=== PATIENT | female | born 1975 | race Caucasian/White ===

== ENCOUNTER 2022-01-09 02:11 | Observation (INO) | payer OTHER ==
[2022-01-09] MEDS ORDERED: NALOXONE 0.4 MG/ML 1 ML VIAL IV PRN (03:36)
[2022-01-09] MEDS ORDERED: HYDROmorphone 0.5 MG/0.5 ML SYRINGE IVP PRN (03:36)
[2022-01-09] MEDS: HYDROmorphone 1 MG/ML 1 ML SYRINGE IVP PRN ×2 (04:05→12:25)
[2022-01-09] MEDS: ONDANSETRON 4 MG/2 ML VIAL IVP PRN ×2 (04:06→14:23)
[2022-01-09] MEDS: SODIUM CHLORIDE 0.9% 1,000 ML IV SCH ×2 (04:15→14:23)
--- NOTE | 2022-01-09 08:57 | P.GSHP ---
History of Present Illness H&P Date: 01/09/22 Chief Complaint: Right flank pain The patient is a 46-year-old white female with a history of urolithiasis. She underwent ESWL approximately 3 years ago in [place], [place]. She now presents with a one-month history of intermittent right flank pain. Her pain became severe yesterday, associated with nausea and vomiting. She presented to the ER at [facility]. 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 Because of the hydronephrosis was indeterminate. Ultrasound the prior day showed moderate to severe right hydronephrosis. - Constitutional Constitutional: Denies chills, Denies fever - Gastrointestinal Gastrointestinal: Reports nausea, Reports vomiting - Genitourinary (Female) Genitourinary: Reports flank pain, Reports hematuria, Reports kidney stones, Denies dysuria Past Medical History Past Medical History: No Reported History History of Any Multi-Drug Resistant Organisms: None Reported Past Surgical History: Cholecystectomy Past Psychological History: No Psychological Hx Reported Smoking Status: Current every day smoker Past Alcohol Use History: None Reported Past Drug Use History: None Reported Medications and Allergies Home Medications Medication Instructions Recorded Confirmed Type Ascorbic Acid/Collagen Hydr 1 cap PO DAILY 01/09/22 01/09/22 History [Collagen Plus Vit C Capsule] Cholecalciferol (Vitamin D3) 250 mcg PO DAILY 01/09/22 01/09/22 History [Vitamin D3 (125 MCG = 5,000 IU)] Fish Oil/Dha/Epa [Fish Oil 1,200 1 cap PO DAILY 01/09/22 01/09/22 History mg Fish Oil] Vitamin B Complex 1 cap PO DAILY 01/09/22 01/09/22 History Allergies Allergy/AdvReac Type Severity Reaction Status Date / Time No Known Allergies Allergy Verified 01/09/22 08:30 Surgical - Exam Vital Signs Temp Pulse Resp BP Pulse Ox 98.9 F 76 16 112/74 96 01/09/22 02:39 01/09/22 02:39 01/09/22 02:39 01/09/22 02:39 01/09/22 02:39 - General well developed, well nourished, no distress - Neck no masses, trachea midline - Respiratory normal respiratory effort - Abdomen Soft, non-distended, no palpable mass. There is evidence of right lower quadrant tenderness and right CVA tenderness, no guarding or rebound. - Psychiatric oriented to time, oriented to person, oriented to place, speech is normal, memory intact Results - Imaging CT scan - abdomen: report reviewed Assessment and Plan (1) Unspecified hydronephrosis Current Visit: Yes Status: Acute Code(s): N13.30 - UNSPECIFIED HYDRONEPHROSIS SNOMED Code(s): 76979247 Plan: I had a lengthy discussion with the patient regarding her hydronephrosis. The l fuad cause of the hydronephrosis is a distal ureteral calculus. She is currently receiving parenteral analgesics and IV hydration. Her serum creatinine level is 1.4. She will undergo cystoscopy, right retrograde pyelogram, right ureteral stent insertion. Ureteroscopy will be performed if necessary to place the stent. Assuming she has an obstructing distal ureteral calculus, she would then be scheduled to undergo a secondary procedure in 2-4 weeks which would consist of ureteroscopic removal of the calculus. The ureteral stent would be removed at that time. Potential risks associated with stent placement have been reviewed with the patient, including anesthesia, ureteral injury, and inability to successfully place the stent, in which case a nephrostomy tube may be required. Time with Patient: Greater than 30
[2022-01-09] MEDS: PANTOPRAZOLE 40 MG/10 ML VIAL IV SCH (09:57)
[2022-01-09] MEDS ORDERED: LACTATED RINGERS 1,000 ML IV ONE (15:57)
[2022-01-09] MEDS ORDERED: DEXAMETHASONE SOD PHOSPHATE 4 MG/ML 1 ML VIAL IVP ONE (15:58)
[2022-01-09] MEDS ORDERED: fentaNYL (PF) 50 MCG/ML 2 ML AMP ONE (16:03)
[2022-01-09] MEDS ORDERED: MIDAZOLAM 2 MG/2 ML VIAL ONE (16:03)
[2022-01-09] MEDS ORDERED: LIDOCAINE 2% INJ 20 MG/ML (2 ML VIAL) ONE (16:03)
[2022-01-09] MEDS ORDERED: PROPOFOL 10 MG/ML 20 ML VIAL IV ONE (16:03)
[2022-01-09] MEDS ORDERED: IOPAMIDOL-370 50ML BTL MISCELLANE ONE ×3 (16:05→16:26)
--- NOTE | 2022-01-09 17:53 | P.OP ---
Date of Procedure: 01/09/22 Preoperative Diagnosis: Right hydronephrosis secondary to right distal ureteral calculus Postoperative Diagnosis: Same Procedure(s) Performed: Cystoscopy, right retrograde pyelogram, right ureteroscopy, right ureteral stent insertion Anesthesia: JACI Surgeon: Won Gomez Estimated Blood Loss (ml): 0 IV fluids (ml): 400 Pathology: none sent Condition: stable Disposition: PACU Indications for Procedure: The patient is a 46-year-old white female with a history of urolithiasis. She underwent ESWL approximately 3 years ago in [place], [place]. She now presents with a one-month history of intermittent right flank pain. Her pain became severe yesterday, associated with nausea and vomiting. She presented to the ER at [facility]. 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 Because of the hydronephrosis was indeterminate. Ultrasound the prior day showed moderate to severe right hydronephrosis. Operative Findings: Marked right hydroureteronephrosis due to a 3-4 mm impacted right distal ureteral calculus. Description of Procedure: The patient was taken to the operating room and placed in the dorsolithotomy position, with legs supported in Ti stirrups. The external genitalia was prepped and draped sterilely. The 30 lens was used to introduce the 22-Iranian Stortz cystoscopic sheath through the urethra and into the bladder under direct vision. The bladder was examined in its entirety. Both ureteral orifices were of normal anatomic location and configuration, and clear urine effluxed from the left. No tumors or foreign bodies were seen. Using a 10-Iranian cone-tipped catheter, a right retrograde pyelogram was performed. This revealed a 3-4 mm right distal ureteral calculus with proximal hydroureter. An angle-tip 0.035 inch Glidewire was passed through the cystoscope. The right ureteral orifice was cannulated, and the Glidewire was slowly advanced up to the calculus. However, despite significant manipulation the Glidewire would not pass the on the calculus. Therefore, the cystoscope was removed and the ACMI semirigid ureteroscope was advanced into the bladder. The right ureteral orifice was cannulated, and the Glidewire was advanced through the ureteroscope. It was possible to advance the Glidewire beyond the calculus and up to the right renal pelvis, where it coiled. The renal pelvis appeared to be markedly dilated given the course of the Glidewire. The ureteroscope was removed, and the Glidewire was backloaded into the cystoscope, which was passed into the bladder. A 24 cm, 6-Iranian double-J ureteral stent was placed over the wire. Proper stent positioning was verified fluoroscopically and endoscopically. There was evidence of a "hydronephrotic villanueva", as urine passed through the ureteral stent. The bladder was emptied and the cystoscope removed. The patient tolerated the procedure well was taken to the recovery room in stable condition.
[2022-01-10] MEDS: SODIUM CHLORIDE 0.9% 1,000 ML IV SCH ×2 (01:06→09:27)
[2022-01-10 03:05] VITALS: RESP 16
[2022-01-10 07:30] VITALS: BP 105/65; PULSE 71; TEMP 98.6
--- NOTE | 2022-01-10 07:51 | FL ---
Intraoperative/procedural fluoroscopic services were provided. Total fluoroscopy time is 32.3 seconds with a total of 3 submitted images to PACS. Please see the operative/procedural note for further det ails.
[2022-01-10] MEDS: PANTOPRAZOLE 40 MG/10 ML VIAL IV SCH (09:27)
--- NOTE | 2022-01-10 10:25 | P.DS ---
Providers Date of admission: 01/09/22 03:36 Expected date of discharge: 01/10/22 Attending physician: Won Gomez Primary care physician: Hermes Vieyra - Discharge Diagnosis(es) (1) Unspecified hydronephrosis Current Visit: Yes Status: Acute Hospital Course: The patient presented with right flank pain. CT scan at [facility] showed severe right hydroureteronephrosis of indeterminate etiology, with a right perinephric urinoma. She has a history of urolithiasis. She was treated with parenteral analgesics. She underwent right ureteral stent insertion and felt much better following the procedure. At the time of discharge, she reported minimal right flank discomfort and mild urinary frequency. She did not feel that either warranted treatment. Procedures: Cystoscopy, right retrograde pyelogram, right ureteroscopy, right ureteral stent insertion on 01/09/2022. Patient Condition at Discharge: Good Plan - Discharge Summary Discharge Rx Participant: No New Discharge Prescriptions: No Action Vitamin B Complex 1 cap PO DAILY Fish Oil/Dha/Epa [Fish Oil 1,200 mg Fish Oil] 1 cap PO DAILY Cholecalciferol (Vitamin D3) [Vitamin D3 (125 MCG = 5,000 IU)] 250 mcg PO DAILY Ascorbic Acid/Collagen Hydr [Collagen Plus Vit C Capsule] 1 cap PO DAILY Discharge Medication List Ascorbic Acid/Collagen Hydr [Collagen Plus Vit C Capsule] 1 cap PO DAILY 01/09/22 [History] Cholecalciferol (Vitamin D3) [Vitamin D3 (125 MCG = 5,000 IU)] 250 mcg PO DAILY 01/09/22 [History] Fish Oil/Dha/Epa [Fish Oil 1,200 mg Fish Oil] 1 cap PO DAILY 01/09/22 [History] Vitamin B Complex 1 cap PO DAILY 01/09/22 [History] Follow up Appointment(s)/Referral(s): Hermes Vieyra MD [Primary Care Provider] - 1 Week Activity/Diet/Wound Care/Special Instructions: Diet as tolerated. Activity as tolerated. Patient will be contacted by Dr. Gomez' office to arrange surgery in 2-3 weeks (cystoscopy, right ureteral stent removal, right ureteroscopy with laser lithotripsy and stone basketing). Discharge Disposition: HOME SELF-CARE
--- NOTE | 2022-02-11 07:25 | ED ---
Abdominal Pain HPI - General Chief Complaint: Abdominal Pain Stated Complaint: Flank Pain, Transfer Time Seen by Provider: 01/09/22 02:45 Source: patient Mode of arrival: ambulatory Limitations: no limitations - History of Present Illness Initial Comments: Please note that this is a replacement Of the dictation, the original appears to have been lost from the system. This patient is 46-year-old woman who arrives here as transfer from [facility]. The patient had gone there with complaint of right flank pain. She had been having intermittent pains going back a number of weeks. She did have a lithotripsy performed by urology approximately a month ago, but she continued to have some intermittent pains that became much more severe over the course of today. She had gone to the other department where she was found to have hydroureter and hydronephrosis with suspected urinoma. Patient was transferred here for further management. She states she has had a little bit of relief with analgesics. Patient not noting fevers. MD Complaint: abdominal pain -: week(s) Location: R flank Migration to: no migration Severity: severe Quality: aching Consistency: colicky Improves With: medication Worsens With: nothing Context: recent surgery/procedure - Related Data Home Medications Medication Instructions Recorded Confirmed Ascorbic Acid/Collagen Hydr 1 cap PO DAILY 01/09/22 01/21/22 [Collagen Plus Vit C Capsule] Cholecalciferol (Vitamin D3) 250 mcg PO DAILY 01/09/22 01/21/22 [Vitamin D3 (125 MCG = 5,000 IU)] Fish Oil/Dha/Epa [Fish Oil 1,200 1 cap PO DAILY 01/09/22 01/21/22 mg Fish Oil] Vitamin B Complex 1 cap PO DAILY 01/09/22 01/21/22 Allergies Allergy/AdvReac Type Severity Reaction Status Date / Time No Known Allergies Allergy Verified 01/22/22 11:13 Review of Systems ROS Statement: Those systems with pertinent positive or pertinent negative responses have been documented in the HPI. ROS Other: All systems not noted in ROS Statement are negative. Constitutional: Denies: fever, weakness Respiratory: Denies: cough, dyspnea Cardiovascular: Denies: chest pain, palpitations, edema Gastrointestinal: Reports: as per HPI, abdominal pain, nausea. Denies: vomiting, diarrhea, constipation Genitourinary: Denies: dysuria, frequency, hematuria Musculoskeletal: Denies: back pain Skin: Denies: rash Neurological: Denies: headache, weakness Past Medical History Past Medical History: No Reported History History of Any Multi-Drug Resistant Organisms: None Reported Past Surgical History: Cholecystectomy Past Psychological History: No Psychological Hx Reported Smoking Status: Current every day smoker Past Alcohol Use History: None Reported Past Drug Use History: None Reported General Exam Limitations: no limitations General appearance: alert, in no apparent distress Head exam: Present: atraumatic, normocephalic Eye exam: Present: normal appearance. Absent: scleral icterus, conjunctival injection ENT exam: Present: normal oropharynx Neck exam: Present: normal inspection Respiratory exam: Present: normal lung sounds bilaterally. Absent: respiratory distress, wheezes, rales, rhonchi, stridor Cardiovascular Exam: Present: regular rate, normal rhythm, normal heart sounds. Absent: systolic murmur, diastolic murmur, rubs, gallop GI/Abdominal exam: Present: soft. Absent: distended, tenderness, guarding, rebound, rigid, mass Extremities exam: Present: normal inspection, normal capillary refill. Absent: pedal edema, calf tenderness Back exam: Present: normal inspection, CVA tenderness (R). Absent: CVA tenderness (L), vertebral tenderness Neurological exam: Present: alert Skin exam: Present: warm, dry, intact, normal color. 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 Patient has had some relief with analgesics and will be admitted to urology service. Disposition Clinical Impression: Calculus of ureter, Intractable abdominal pain Disposition: ADMITTED IP TO THIS HOSP Condition: Fair Is patient prescribed a controlled substance at d/c from ED?: No
== END 2022-01-10 11:12 | disposition home or self-care (01) ==
LOC: EC 02:11 → INTOOBSV 03:36 → 4SSUR 03:36 → UNDODISIN 01-10 11:12
PROVIDERS: ADMIT Urology; ATTEND Urology
PROC: 0T768DZ Dilation of Right Ureter with Intraluminal Device, Via Natural or Artificial Opening Endoscopic (ICD-10-PCS; principal; 2022-01-09 18:30)
PROC: BT1D1ZZ Fluoroscopy of Right Kidney, Ureter and Bladder using Low Osmolar Contrast (ICD-10-PCS; 2022-01-09 18:30)
DX: N13.2 Hydronephrosis with renal and ureteral calculous obstruction (principal); F17.210 Nicotine dependence, cigarettes, uncomplicated; Z87.442 Personal history of urinary calculi; Z90.49 Acquired absence of other specified parts of digestive tract
CPT/HCPCS: 96376; 96375 ×2; 96374; 99284; 81025 ×2; 52332; G0378 ×2; C2625; C1758; C1769; J2250; J1100; J2405; J3010; J1170 ×2; J2704; C9113 ×2; Q9967; J2001

== ENCOUNTER 2022-01-22 10:32 | Day surgery (SDC) | payer OTHER ==
--- NOTE | 2022-01-17 09:05 | P.GSHP ---
History of Present Illness H&P Date: 01/17/22 Chief Complaint: Right flank pain The patient is a 46-year-old white female with a history of urolithiasis. She underwent ESWL approximately 3 years ago in [place], [place]. She recently presented with a one-month history of intermittent right flank pain. Her pain became severe, associated with nausea and vomiting. She presented to the ER at [facility]. 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 She was transferred to [facility] and underwent right ureteral stent placement. It was determined at that time that she had an impacted 4 mm right distal ureteral calculus. Her pain improved following stent placement. - Constitutional Constitutional: Denies chills, Denies fever - Gastrointestinal Gastrointestinal: Reports nausea, Reports vomiting - Genitourinary (Female) Genitourinary: Reports flank pain, Reports hematuria, Reports kidney stones, Denies dysuria Past Medical History Past Medical History: No Reported History History of Any Multi-Drug Resistant Organisms: None Reported Past Surgical History: Cholecystectomy Past Psychological History: No Psychological Hx Reported Smoking Status: Current every day smoker Past Alcohol Use History: None Reported Past Drug Use History: None Reported Medications and Allergies Home Medications Medication Instructions Recorded Confirmed Type Ascorbic Acid/Collagen Hydr 1 cap PO DAILY 01/09/22 01/09/22 History [Collagen Plus Vit C Capsule] Cholecalciferol (Vitamin D3) 250 mcg PO DAILY 01/09/22 01/09/22 History [Vitamin D3 (125 MCG = 5,000 IU)] Fish Oil/Dha/Epa [Fish Oil 1,200 1 cap PO DAILY 01/09/22 01/09/22 History mg Fish Oil] Vitamin B Complex 1 cap PO DAILY 01/09/22 01/09/22 History Allergies Allergy/AdvReac Type Severity Reaction Status Date / Time No Known Allergies Allergy Verified 01/09/22 08:30 Surgical - Exam - General well developed, well nourished, no distress - Neck no masses, trachea midline - Respiratory normal respiratory effort - Abdomen Abdomen: soft, tender (Right lower quadrant and right CVA tenderness), no guarding, no rigid, no rebound - Genitourinary normal external genitalia - Psychiatric oriented to time, oriented to person, oriented to place, speech is normal, memory intact Assessment and Plan (1) Calculus of ureter Status: Acute Code(s): N20.1 - CALCULUS OF URETER SNOMED Code(s): 64275844 Plan: Cystoscopy, right ureteral stent removal, right ureteroscopy with Holmium laser lithotripsy and possible stone basketing. The procedure has been reviewed in detail with the patient. She is aware of potential risks, which include anesthesia, bleeding, infection, and ureteral injury. If ureteral dilation is required, she will require replacement of the ureteral stent.
[2022-01-21 13:46] VITALS: BMI 24.0
[~2022-01-22 10:32] MED LIST: DEXAMETHASONE SOD PHOSPHATE 4 MG/ML 1 ML VIAL IV ONE; HYDROmorphone 0.5 MG/0.5 ML SYRINGE IVP PRN; LACTATED RINGERS 1,000 ML IV SCH; LIDOCAINE 1% (10MG/ML) FOR IV START INTRADERMA PRN; ONDANSETRON 4 MG/2 ML VIAL IVP PRN
--- NOTE | 2022-01-22 10:55 | XR ---
EXAMINATION TYPE: XR KUB DATE OF EXAM: 01/22/2022 COMPARISON: NONE HISTORY: Lithotripsy TECHNIQUE: One view abdominal series FINDINGS: Double-J right-sided ureteral stent. There is a calcification near the UVJ within the pelvis which ma y be associated with the right ureter. Additional calcifications are noted in the joint which are lik fiordaliza vascular. One of which potentially could be within the bladder. Surgical clips in the right upper quadrant. Bowel gas pattern nonspecific with retained debris correlate for constipation. Osseous structures int act. IMPRESSION: 1. Double-J ureteral stent with a questionable punctate calcification along the very distal margin of the ureteral stent measuring less than 5 mm.
[2022-01-22] MEDS ORDERED: MIDAZOLAM 2 MG/2 ML VIAL ONE (12:29)
[2022-01-22] MEDS ORDERED: LIDOCAINE 2% INJ 20 MG/ML (2 ML VIAL) ONE (12:29)
[2022-01-22] MEDS ORDERED: SUCCINYLCHOLINE CHLORIDE 200 MG/10 ML VIAL IV ONE (12:29)
[2022-01-22] MEDS ORDERED: fentaNYL (PF) 50 MCG/ML 2 ML AMP ONE (12:29)
[2022-01-22] MEDS ORDERED: PROPOFOL 10 MG/ML 20 ML VIAL IV ONE (12:29)
[2022-01-22 13:32] VITALS: TEMP 97.4
--- NOTE | 2022-01-22 13:35 | P.OP ---
Date of Procedure: 01/22/22 Preoperative Diagnosis: Right ureteral calculus Postoperative Diagnosis: Same Procedure(s) Performed: Cystoscopy, right ureteral stent removal, right ureteroscopy with Holmium laser lithotripsy and stone basketing Anesthesia: JACI Surgeon: Won Gomez Estimated Blood Loss (ml): 0 IV fluids (ml): 800 Pathology: other (Calculus fragments, sent for chemical analysis) Condition: stable Disposition: PACU Indications for Procedure: The patient is a 46-year-old white female with a history of urolithiasis. She underwent ESWL approximately 3 years ago in [place], [place]. She recently presented with a one-month history of intermittent right flank pain. Her pain became severe, associated with nausea and vomiting. She presented to the ER at [facility]. 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 She was transferred to [facility] and underwent right ureteral stent placement. It was determined at that time that she had an impacted 4 mm right distal ureteral calculus. Her pain improved following stent placement. Operative Findings: Right distal ureteral calculus, fragmented and removed completely. Description of Procedure: The patient was taken to the operating room and placed in the dorsolithotomy position, with legs supported in Ti stirrups. The external genitalia was prepped and draped sterilely. The 30 lens was used to introduce the 21-Irish Mcintosh cystoscopic sheath through the urethra and into the bladder under direct vision. The bladder was examined in its entirety. No abnormalities were seen. Grasping forceps were used to grasp the distal end of the right ureteral stent, which was removed along with the cystoscope. The Mcintosh semirigid ureteroscope was advanced into the bladder, and the right ureteral orifice was cannulated. The ureteroscope was slowly advanced under direct vision, up to the calculus. The 272 micron Holmium laser probe was passed through the ureteroscope, and lithotripsy was performed. After fragmenting the calculus, calculus fragments were removed using a 1.9-Irish nitinol basket. All calculus fragments were removed and sent for chemical analysis. Inspection of the ureter showed no evidence of ureteral trauma. The ureteroscope was slowly withdrawn and the procedure was terminated. The patient tolerated the procedure well and was taken to the recovery room in stable condition. EZEQUIEL HOLT Report: Procedure Acuity: Elective Stone Size and Location: 4 mm, right distal ureter Ureteral Dilation: No Ureteral Access Sheath Used: No Stone Sent for Analysis: Yes All Stones/Fragments Were Removed with a Basket: Yes Complications: No Preoperative Antibiotics Given: Yes Stent Placed: No Discharge Medications: None
[2022-01-22 14:28] VITALS: BP 108/71; PULSE 65; RESP 16
== END 2022-01-22 14:35 | disposition home or self-care (01) ==
LOC: OR 10:32
PROVIDERS: ATTEND Urology
DX: N20.2 Calculus of kidney with calculus of ureter (principal); N13.30 Unspecified hydronephrosis; R11.2 Nausea with vomiting, unspecified; R31.9 Hematuria, unspecified; F17.200 Nicotine dependence, unspecified, uncomplicated; Z90.49 Acquired absence of other specified parts of digestive tract
CPT/HCPCS: 52353; 81025; 82365; 74018; C1769; J2250; J0330; J1100; J0690; J2405; J3010; J2704; J2001

== ENCOUNTER → 2022-02-19 | Outpatient (CLI) | payer OTHER ==
--- NOTE | 2022-02-19 17:04 | CT ---
EXAMINATION TYPE: CT abdomen pelvis wo con DATE OF EXAM: 02/19/2022 COMPARISON: KUB dated 01/22/2022 HISTORY: Hx of kidney stones. Hx of stent placed w0yzyed ago. Pt says she has right side flank pain. CT DLP: 655 mGycm Examination of the solid and hollow viscera is limited given the lack of contrast. FINDINGS: LUNG BASES: No evidence for nodule. No evidence for infiltrate. LIVER/GB: The gallbladder is surgically absent. No space-occupying hepatic lesion. PANCREAS: No pancreatic mass identified. No inflammatory process seen. SPLEEN: No evidence for splenomegaly. No intrasplenic lesions seen. ADRENALS: No adrenal nodules identified. No evidence for thickening. KIDNEYS: Previously noted double-J right-sided ureteral stent is no longer in place. There are small 2 mm calculi midpole right kidney nonobstructing. No right-sided ureteral calculus is observed. Left kidney is free of nephrolithiasis. No evidence for hydronephrosis bilaterally. No renal masses seen. BOWEL: Appendix has a normal appearance. No evidence of bowel obstruction. No inflammatory process. Lymph nodes: No evidence for adenopathy greater than 1 cm. Abdominal aorta: Atheromatous changes seen. No evidence for aneurysm. Genital organs: 2.3 cm left ovarian cyst. Right ovary is unremarkable. Uterus is within normal limits . Other: No significant abnormality. IMPRESSION: 1. Removal of the double-J right-sided ureteral stent. 2. No evidence for obstructing calculus or hydronephrosis.
== END | disposition home or self-care (01) ==
LOC: RADCTMAIN 16:02
PROVIDERS: ATTEND Urology
DX: Z96.0 Presence of urogenital implants (principal)
CPT/HCPCS: 74176

== ENCOUNTER → 2022-03-20 | Outpatient (CLI) | payer OTHER ==
--- NOTE | 2022-03-20 12:27 | US ---
EXAMINATION TYPE: US kidneys/renal and bladder DATE OF EXAM: 03/20/2022 COMPARISON: NONE CLINICAL HISTORY: N13.2 HYDRONEPHROSIS. recent stone on th right, h/o passing multiple stones bilater ally. EXAM MEASUREMENTS: Right Kidney: 12.6 x 4.9 x 5.2 cm Left Kidney: 10.1 x 4.0 x 4.9 cm Right Kidney: No hydronephrosis or masses seen Left Kidney: No hydronephrosis or masses seen Bladder: wnl Bilateral Jets seen: left There is no evidence for hydronephrosis at this point in time. No nephrolithiasis is seen. No grace s are identified. The urinary bladder is anechoic. Bilateral ureteral jets are seen. IMPRESSION: No discrete abnormality seen.
== END | disposition home or self-care (01) ==
LOC: RADUSWWP 12:02
PROVIDERS: ATTEND Urology
DX: N13.2 Hydronephrosis with renal and ureteral calculous obstruction (principal)
CPT/HCPCS: 76770

== ENCOUNTER 2024-04-12 08:51 | Emergency (ER) | payer OTHER ==
[2024-04-12 09:16] VITALS: TEMP 98.3
--- NOTE | 2024-04-12 09:42 | ED ---
Back Pain HPI - General Source: patient, RN notes reviewed Mode of arrival: ambulatory Limitations: no limitations <Charlene Orozco - Last Filed: 04/12/24 09:41> <Aide Soto - Last Filed: 04/19/24 17:03> - General Chief Complaint: Urogenital Stated Complaint: R side pain Time Seen by Provider: 04/12/24 08:55 - History of Present Illness Initial Comments: Quick Note: This is a 49-year-old female who presents to the emergency department for flank pain. Patient states that this started a month ago. Denies any nausea or vomiting. She has a substantial history of kidney stones requiring stents and states that this feels the same. (Charlene Orozco) 49-year-old female presents to the emergency department for evaluation of right flank pain. Patient reports that this has been going on for 1 month. Patient notes worsening symptoms today. She denies nausea, vomiting. Denies any sign ificant urinary symptoms, hematuria. Denies recent fever, chills. She does report a history of kidney stones and states that this feels similar. She does report that she followed up with her urologist recently. A UA was performed at that time and she states that there is no evidence of infection. (Aide Soto) - Related Data Home Medications Medication Instructions Recorded Confirmed Ascorbic Acid/Collagen Hydr 1 cap PO DAILY 01/09/22 01/21/22 [Collagen Plus Vit C Capsule] Cholecalciferol (Vitamin D3) 250 mcg PO DAILY 01/09/22 01/21/22 [Vitamin D3 (125 MCG = 5,000 IU)] Fish Oil/Dha/Epa [Fish Oil 1,200 1 cap PO DAILY 01/09/22 01/21/22 mg Fish Oil] Vitamin B Complex 1 cap PO DAILY 01/09/22 01/21/22 Previous Rx's Medication Instructions Recorded Ketorolac [Toradol] 10 mg PO Q8HR #15 tab 04/12/24 Allergies Allergy/AdvReac Type Severity Reaction Status Date / Time No Known Allergies Allergy Verified 04/12/24 09:15 Review of Systems ROS Other: All systems not noted in ROS Statement are negative. <Charlene Orozco - Last Filed: 04/12/24 09:41> ROS Other: All systems not noted in ROS Statement are negative. <Aide Soto - Last Filed: 04/19/24 17:03> ROS Statement: Those systems with pertinent positive or pertinent negative responses have been documented in the HPI. Past Medical History Past Medical History: No Reported History Additional Past Medical History / Comment(s): Hx of and current kidney stones. History of Any Multi-Drug Resistant Organisms: None Reported Past Surgical History: Cholecystectomy Additional Past Surgical History / Comment(s): Kidney stone procedure, right ureteral stent. Past Anesthesia/Blood Transfusion Reactions: No Reported Reaction Past Psychological History: No Psychological Hx Reported Smoking Status: Former smoker Past Alcohol Use History: None Reported Past Drug Use History: None Reported - Past Family History Mother Family Medical History: No Reported History <Charlene Orozco - Last Filed: 04/12/24 09:41> General Exam Limitations: no limitations <Charlene Orozco - Last Filed: 04/12/24 09:41> Limitations: no limitations General appearance: alert, in no apparent distress Head exam: Present: atraumatic, normocephalic, normal inspection Eye exam: Present: normal appearance, PERRL, EOMI. Absent: scleral icterus, conjunctival injection, periorbital swelling ENT exam: Present: normal exam, mucous membranes moist Respiratory exam: Present: normal lung sounds bilaterally. Absent: respiratory distress, wheezes, rales, rhonchi, stridor Cardiovascular Exam: Present: regular rate, normal rhythm, normal heart sounds. Absent: systolic murmur, diastolic murmur, rubs, gallop, clicks GI/Abdominal exam: Present: soft, normal bowel sounds. Absent: distended, tenderness, guarding, rebound, rigid Extremities exam: Present: normal inspection, full ROM, normal capillary refill. Absent: tenderness, pedal edema, joint swelling, calf tenderness Back exam: Present: normal inspection, full ROM, CVA tenderness (R). Absent: CVA tenderness (L) Neurological exam: Present: alert, oriented X3, CN II-XII intact Psychiatric exam: Present: normal affect, normal mood Skin exam: Present: warm, dry, intact, normal color. Absent: rash <Aide Soto - Last Filed: 04/19/24 17:03> - General Exam Comments Initial Comments: Visual Physical Exam Vital signs reviewed General: Well-appearing, nontoxic, no acute distress. Head: Normocephalic, atraumatic Eyes: PERRLA, EOMI ENT: Airway patent Chest: Nonlabored breathing Skin: No visual rash, normal skin tone Neuro: Alert and oriented 3 Musculoskeletal: No gross abnormalities (Charlene Orozco) Course Vital Signs 04/12/24 04/12/24 09:14 13:03 Temperature 98.3 F Pulse Rate 103 H 66 Respiratory 18 20 Rate Blood Pressure 126/82 114/73 O2 Sat by Pulse 96 100 Oximetry Medical Decision Making <Charlene Orozco - Last Filed: 04/12/24 09:41> - Lab Data Result diagrams: 04/12/24 11:09 04/12/24 11:09 <Aide Soto - Last Filed: 04/19/24 17:03> - Medical Decision Making I performed the QuickNote portion of this chart. Signed Charlene Orozco PA-C. (Charlene Orozco) Was pt. sent in by a medical professional or institution ([facility], [employer], urgent care, hospital, or fci...) When possible be specific @ -No Did you speak to anyone other than the patient for history (EMS, parent, family, police, friend...)? What history was obtained from this source @ -No Did you review nursing and triage notes (agree or disagree)? Why? @ -I reviewed and agree with nursing and triage notes Were old charts reviewed (outside hosp., previous admission, EMS record, old EKG, old radiological studies, urgent care reports/EKG's, fci records)? Report findings @ -No old charts were reviewed Differential Diagnosis (chest pain, altered mental status, abdominal pain women, abdominal pain men, vaginal bleeding, weakness, fever, dyspnea, syncope, headache, dizziness, GI bleed, back pain, seizure, CVA, palpatations, mental health, musculoskeletal)? @ -Differential Back Pain: Strain, zoster, cauda equina syndrome, epidural abscess, vertebral osteomyelitis, discitis, fracture, subluxation, disc herniation, DJD, spinal stenosis, dissection, AAA, pancreatitis, peptic ulcer disease, pyelonephritis, kidney stone, this is not meant to be an all-inclusive list. EKG interpreted by me (3pts min.). @ -None X-rays interpreted by me (1pt min.). @ -None done CT interpreted by me (1pt min.). @ -CT abdomen pelvis shows nonobstructive right renal calculi U/S interpreted by me (1pt. min.). @ -None done What testing was considered but not performed or refused? (CT, X-rays, U/S, labs)? Why? @ -None What meds were considered but not given or refused? Why? @ -None Did you discuss the management of the patient with other professionals (professionals i.e. , PA, SHE[employer]OR, lab, RT, psych nurse, social work administrator, bilingual school psychologist, teacher, workplace rehabilitation officer, case planner)? Give summary @ -No Was smoking cessation discussed for >3mins.? @ -No Was critical care preformed (if so, how long)? @ -No Were there social determinants of health that impacted care today? How? (Homelessness, low income, unemployed, alcoholism, drug addiction, transportation, low edu. Level, literacy, decrease access to med. care, fdc, rehab)? @ -No Was there de-escalation of care discussed even if they declined (Discuss DNR or withdrawal of care, Hospice)? DNR status @ -No What co-morbidities impacted this encounter? (DM, HTN, Smoking, COPD, CAD, Cancer, CVA, ARF, Chemo, Hep., AIDS, mental health diagnosis, sleep apnea, morbid obesity)? @ -None Was patient admitted / discharged? Hospital course, mention meds given and route, prescriptions, significant lab abnormalities, going to OR and other pertinent info. @ -Discharge. Patient presented to the emergency department for evaluation of right flank pain. Laboratory studies obtained.CBC, CMP essentially unremarkable UA shows no evidence of infectious process, trace blood. CT abdomen pelvis obtained shows nonobstructing right renal calculi, no evidence of acute process. Discussed findings with patient. She had symptom relief with Toradol. Discussed with patient that I would send prescription for p.o. Toradol advised not to take any other anti-inflammatories while taking the medication. Advised follow-up with her PCP and neurologist. She is understanding and agreeable with this plan. Patient stable at time of discharge. Case discussed with Dr. Carranza Undiagnosed new problem with uncertain prognosis? @ -No Drug Therapy requiring intensive monitoring for toxicity (Heparin, Nitro, Insulin, Cardizem)? @ -No Were any procedures done? @ -No Diagnosis/symptom? @ -Flank pain Acute, or Chronic, or Acute on Chronic? @ -acute Uncomplicated (without systemic symptoms) or Complicated (systemic symptoms)? @ -Uncomplicated Side effects of treatment? @ -no Exacerbation, Progression, or Severe Exacerbation? @ -No Poses a threat to life or bodily function? How? (Chest pain, [place], [place], pneumonia, PE, COPD, DKA, ARF, appy, cholecystitis, CVA, Diverticulitis, Homicidal, Suicidal, threat to staff... and all critical care pts) @ -No (Aide Soto) - Lab Data Lab Results 04/12/24 04/12/24 04/12/24 Range/Units 10:11 11:09 11:09 WBC 6.1 (3.8-10.6) k/uL RBC 4.44 (3.80-5.40) m/uL Hgb 13.1 (11.4-16.0) gm/dL Hct 41.0 (34.0-46.0) % MCV 92.4 (80.0-100.0) fL MCH 29.5 (25.0-35.0) pg MCHC 32.0 (31.0-37.0) g/dL RDW 13.6 (11.5-15.5) % Plt Count 274 (150-450) k/uL MPV 10.7 Neutrophils % 55 % Lymphocytes % 32 % Monocytes % 5 % Eosinophils % 5 % Basophils % 1 % Neutrophils # 3.3 (1.3-7.7) k/uL Lymphocytes # 1.9 (1.0-4.8) k/uL Monocytes # 0.3 (0-1.0) k/uL Eosinophils # 0.3 (0-0.7) k/uL Basophils # 0.0 (0-0.2) k/uL Sodium 138 (137-145) mmol/L Potassium 4.3 (3.5-5.1) mmol/L Chloride 104 (98-107) mmol/L Carbon Dioxide 27 (22-30) mmol/L Anion Gap 7 mmol/L BUN 17 (7-17) mg/dL Creatinine 0.71 (0.52-1.04) mg/dL Est GFR (CKD-EPI)AfAm >90 (>60 ml/min/1.73 sqM) Est GFR (CKD-EPI)NonAf >90 (>60 ml/min/1.73 sqM) Glucose 99 (74-99) mg/dL Plasma Lactic Acid Td (0.7-2.0) mmol/L Calcium 9.3 (8.4-10.2) mg/dL Total Bilirubin 0.4 (0.2-1.3) mg/dL AST 22 (14-36) U/L ALT 23 (4-34) U/L Alkaline Phosphatase 60 (38-126) U/L Total Protein 7.3 (6.3-8.2) g/dL Albumin 4.5 (3.5-5.0) g/dL Urine Color Colorless Urine Appearance Clear (Clear) Urine pH 5.5 (5.0-8.0) Ur Specific Guy 1.014 (1.001-1.035) Urine Protein Negative (Negative) Urine Glucose (UA) Negative (Negative) Urine Ketones Negative (Negative) Urine Blood Trace H (Negative) Urine Nitrite Negative (Negative) Urine Bilirubin Negative (Negative) Urine Urobilinogen <2.0 (<2.0) mg/dL Ur Leukocyte Esterase Negative (Negative) Urine RBC 1 (0-5) /hpf Urine WBC <1 (0-5) /hpf Ur Squamous Epith Cells 1 (0-4) /hpf Urine Mucus Rare H (None) /hpf 04/12/24 Range/Units 11:09 WBC (3.8-10.6) k/uL RBC (3.80-5.40) m/uL Hgb (11.4-16.0) gm/dL Hct (34.0-46.0) % MCV (80.0-100.0) fL MCH (25.0-35.0) pg MCHC (31.0-37.0) g/dL RDW (11.5-15.5) % Plt Count (150-450) k/uL MPV Neutrophils % % Lymphocytes % % Monocytes % % Eosinophils % % Basophils % % Neutrophils # (1.3-7.7) k/uL Lymphocytes # (1.0-4.8) k/uL Monocytes # (0-1.0) k/uL Eosinophils # (0-0.7) k/uL Basophils # (0-0.2) k/uL Sodium (137-145) mmol/L Potassium (3.5-5.1) mmol/L Chloride (98-107) mmol/L Carbon Dioxide (22-30) mmol/L Anion Gap mmol/L BUN (7-17) mg/dL Creatinine (0.52-1.04) mg/dL Est GFR (CKD-EPI)AfAm (>60 ml/min/1.73 sqM) Est GFR (CKD-EPI)NonAf (>60 ml/min/1.73 sqM) Glucose (74-99) mg/dL Plasma Lactic Acid Td 0.6 L (0.7-2.0) mmol/L Calcium (8.4-10.2) mg/dL Total Bilirubin (0.2-1.3) mg/dL AST (14-36) U/L ALT (4-34) U/L Alkaline Phosphatase (38-126) U/L Total Protein (6.3-8.2) g/dL Albumin (3.5-5.0) g/dL Urine Color Urine Appearance (Clear) Urine pH (5.0-8.0) Ur Specific Guy (1.001-1.035) Urine Protein (Negative) Urine Glucose (UA) (Negative) Urine Ketones (Negative) Urine Blood (Negative) Urine Nitrite (Negative) Urine Bilirubin (Negative) Urine Urobilinogen (<2.0) mg/dL Ur Leukocyte Esterase (Negative) Urine RBC (0-5) /hpf Urine WBC (0-5) /hpf Ur Squamous Epith Cells (0-4) /hpf Urine Mucus (None) /hpf Disposition <Charlene Orozco - Last Filed: 04/12/24 09:41> Is patient prescribed a controlled substance at d/c from ED?: No <Aide Soto - Last Filed: 04/19/24 17:03> Clinical Impression: Flank pain Disposition: HOME SELF-CARE Condition: Stable Instructions (If sedation given, give patient instructions): Flank Pain (ED) Additional Instructions: Please follow up with urology. Do not take any other forms of anti-inflammatory medications while taking Toradol such as ibuprofen, naproxen. Return to the emergency department for new or worsening symptoms. Prescriptions: Ketorolac [Toradol] 10 mg PO Q8HR #15 tab Referrals: Hermes Vieyra MD [Primary Care Provider] - 1-2 days Butch Garcia MD [STAFF PHYSICIAN] - 1-2 days Won Goemz MD [STAFF PHYSICIAN] - 1-2 days
[2024-04-12 10:19] LABS: Appearance,Urine Clear (Clear); Bilirubin,Urine Negative (Negative); Blood,Urine Trace (Negative); Color,Urine Colorless; Glucose,Urine (UA) Negative (Negative); Ketones,Urine Negative (Negative); Leukocyte Esterase,Urine Negative (Negative); Mucus,Urine Rare /hpf; Nitrite,Urine Negative (Negative); PH, Urine 5.5 (5.0-8.0); Protein,Urine Negative (Negative); RBC,Urine 1 /hpf (0-5); Specific Gravity,Urine 1.014 (1.001-1.035); Squamous Epithelial Cell,Urine 1 /hpf (0-4); Urobilinogen,Urine <2.0 mg/dL (<2.0); WBC,Urine <1 /hpf (0-5)
--- NOTE | 2024-04-12 10:26 | CT ---
EXAMINATION TYPE: CT abdomen pelvis wo con CT DLP: 387.9 mGycm, Automated exposure control for dose reduction was used. DATE OF EXAM: 04/12/2024 10:10 AM COMPARISON: CT abdomen pelvis 02/19/2022 CLINICAL INDICATION:Female, 49 years old with history of Right flank pain; Right flank pain TECHNIQUE: Standard CT of the abdomen and pelvis without IV or oral contrast. Lack of IV or oral co ntrast limits evaluation of solid and hollow organ viscera. Coronal and sagittal reformats were perfo rmed. FINDINGS: LOWER CHEST: Bilateral lower lobe linear scarring. ABDOMEN LIVER: Liver is mildly enlarged and measures 16.7 cm in CC dimension. No focal lesion within the limi tations of a noncontrast exam. GALLBLADDER AND BILE DUCTS: The gallbladder is surgically absent. No biliary duct dilatation. PANCREAS: Unremarkable noncontrast appearance SPLEEN: Unremarkable noncontrast appearance ADRENAL GLANDS: Unremarkable noncontrast appearance. KIDNEYS AND URETERS: No evidence of hydronephrosis. No left renal calculi. There are approximately 3 nonobstructive right renal calculi with largest within the inferior pole measuring up to 3 mm. No def initive ureteral calculus. PELVIS BLADDER: Unremarkable noncontrast appearance REPRODUCTIVE: Unremarkable noncontrast appearance ABDOMEN & PELVIS STOMACH AND BOWEL: Stomach and duodenum are unremarkable. No focal bowel wall thickening or surroundi ng inflammatory changes. Scattered distal colonic diverticula. The appendix is within normal limits. No evidence of bowel obstruction. PERITONEUM: No evidence of pneumoperitoneum or free fluid. VASCULATURE: No evidence of aortic aneurysm. Stable pelvic phleboliths. MUSCULOSKELETAL: No acute osseous abnormalities LYMPH NODES: No gross evidence for lymphadenopathy. SOFT TISSUE/ABDOMINAL WALL: Small fat filled umbilical hernia. IMPRESSION: 1. No evidence for obstructive uropathy. Few nonobstructive right renal calculi. 2. Colonic diverticulosis without evidence for acute diverticulitis. 3. Mild hepatomegaly. [facility], , 04/12/2024 10:24 AM
[2024-04-12 11:17] LABS: Basophils % (A) 1 %; Eosinophils # (A) 0.3 k/uL (0-0.7); Eosinophils % (A) 5 %; HGB 13.1 gm/dL (11.4-16.0); Lymphocytes # (A) 1.9 k/uL (1.0-4.8); Lymphocytes % (A) 32 %; MCH 29.5 pg (25.0-35.0); MCV 92.4 fL (80.0-100.0); Mean Platelet Volume 10.7; Monocytes # (A) 0.3 k/uL (0-1.0); Monocytes % (A) 5 %; Neutrophils # (A) 3.3 k/uL (1.3-7.7); Neutrophils % (A) 55 %; Platelet Count 274 k/uL (150-450); RBC 4.44 m/uL (3.80-5.40); RDW 13.6 % (11.5-15.5); WBC 6.1 k/uL (3.8-10.6)
[2024-04-12 11:29] LABS: ALT 23 U/L (4-34); AST 22 U/L (14-36); African American GFR (CKD) >90 (>60 ml/min/1.73 sqM); Albumin 4.5 g/dL (3.5-5.0); Alkaline Phosphatase 60 U/L (38-126); Anion Gap 7 mmol/L; Blood Urea Nitrogen 17 mg/dL (7-17); Calcium 9.3 mg/dL (8.4-10.2); Carbon Dioxide 27 mmol/L (22-30); Chloride 104 mmol/L (98-107); Glucose 99 mg/dL (74-99); Non-African American GFR(CKD) >90 (>60 ml/min/1.73 sqM); Potassium 4.3 mmol/L (3.5-5.1); Sodium 138 mmol/L (137-145); Total Bilirubin 0.4 mg/dL (0.2-1.3); Total Protein 7.3 g/dL (6.3-8.2)
[2024-04-12] MEDS: KETOROLAC 15 MG/ML 1 ML VIAL IVP STA (12:00)
[2024-04-12 13:04] VITALS: BP 114/73; PULSE 66; RESP 20
== END 2024-04-12 13:04 | disposition home or self-care (01) ==
LOC: EC 08:51
DX: N20.0 Calculus of kidney (principal); Z87.891 Personal history of nicotine dependence
CPT/HCPCS: 36415; 80053; 83605; 85025; 81001; 74176; 99284; 96374; J1885